=== PATIENT | male | born 1950 | race Caucasian/White ===

== ENCOUNTER 2016-10-11 09:48 | Outpatient (CLI) | payer BC | END 2016-10-11 09:49 | disposition home or self-care (01) | DX: I10 Essential (primary) hypertension (principal); E78.9 Disorder of lipoprotein metabolism, unspecified; R25.2 Cramp and spasm; N28.9 Disorder of kidney and ureter, unspecified ==

== ENCOUNTER 2018-02-07 08:00 | Outpatient (CLI) | payer BC ==
[2018-02-07 19:18] LABS: BASOPHILS % (AUTO) 1.3 %; EOSINOPHILS % (AUTO) 7.7 %; HGB - HEMOGLOBIN 12.9 g/dL (14.0-18.0); LYMPHOCYTES % (AUTO) 34.6 %; MEAN CORPUSCULAR HEMOGLOBIN 31.6 pg (27.0-31.0); MEAN CORPUSCULAR HGB CONC 34.3 g/dL (32.0-36.0); MEAN PLATELET VOLUME 7.4 fL (7.4-11.4); MONOCYTES % (AUTO) 11.9 %; NEUTROPHILS % (AUTO) 44.5 %; PLT - PLATELET COUNT 261 10^3/uL (130-450); RED BLOOD COUNT 4.07 10^6/uL (4.70-6.10); WHITE BLOOD COUNT 3.8 x10^3/uL (4.8-10.8)
[2018-02-07 19:24] LABS: ABNORMAL LYMPHS % (MANUAL) 0 %; BAND NEUTROPHILS % (MANUAL) 0 %
[2018-02-07 19:30] LABS: HB2 TOTAL 13.1 g/dL; HEMOGLOBIN A1C 0.49 g/dL; HEMOGLOBIN A1C % 5.6 % (4.6-6.2)
[2018-02-07 19:46] LABS: BASOPHILS # (MANUAL) 0.1 10^3/uL (0-0.1); BASOPHILS % (MANUAL) 2 %; EOSINOPHILS # (MANUAL) 0.2 10^3/uL (0-0.7); LYMPHOCYTES # (MANUAL) 1.6 10^3/uL (1.5-3.5); LYMPHOCYTES % (MANUAL) 41 %; MONOCYTES # (MANUAL) 0.3 10^3/uL (0.0-1.0); NEUTROPHILS # (MANUAL) 1.7 10^3/uL (1.5-6.6); NEUTROPHILS % (MANUAL) 46 %; RBC MORPHOLOGY (MULTIPLE) NORMAL APPEARANCE (NORMAL)
[2018-02-07 19:47] LABS: DIFFERENTIAL COMMENT MANUAL DIFFERENTIAL; PLATELET ESTIMATE, MANUAL NORMAL (130-450,000) (NORMAL); PLATELET MORPHOLOGY NORMAL APPEARANCE (NORMAL)
[2018-02-07 20:02] LABS: ALBUMIN 3.6 g/dL (3.2-5.5); ALBUMIN/GLOBULIN RATIO 1.1 (1.0-2.2); ALKALINE PHOSPHATASE 70 IU/L (42-121); ALT ALANINE AMINOTRANSFERASE 20 IU/L (10-60); AST ASPARTATE AMINOTRANSFERASE 27 IU/L (10-42); BILIRUBIN,TOTAL 0.8 mg/dL (0.2-1.0); BUN - BLOOD UREA NITROGEN 24 mg/dL (6-20); CALCIUM 9.3 mg/dL (8.5-10.3); CARBON DIOXIDE - CO2 25 mmol/L (21-32); CHLORIDE 107 mmol/L (101-111); CHOL/HDL RATIO 6.9 (<5.0); CHOLESTEROL 302 mg/dL; CREATININE 1.2 mg/dL (0.6-1.2); GFR - MDRD 61 (>89); GLUCOSE 108 mg/dL (70-100); HDL CHOLESTEROL 44 mg/dL; SODIUM 140 mmol/L (135-145)
[2018-02-07 20:23] LABS: LDL CHOLESTEROL,DIRECT 113 mg/dL; LDLD/HDL RATIO 2.6 (<3.6)
== END 2018-02-07 08:01 | disposition home or self-care (01) ==
LOC: LAB.WCP 08:00
PROVIDERS: ATTEND Family Medicine
DX: R70.0 Elevated erythrocyte sedimentation rate (principal); N28.9 Disorder of kidney and ureter, unspecified; R73.9 Hyperglycemia, unspecified; E78.5 Hyperlipidemia, unspecified; I10 Essential (primary) hypertension; Z12.5 Encounter for screening for malignant neoplasm of prostate
CPT/HCPCS: 36415; 80053; 80061; 83036; 83721; 84153; 84443; 85025

== ENCOUNTER 2018-02-15 08:00 | Outpatient (CLI) | payer MEDICARE, BC ==
[2018-02-15 13:22] LABS: FERRITIN 52.1 ng/mL (23.9-336.2)
[2018-02-15 13:29] LABS: % IRON SATURATION 10 % (20-50); IRON 38 ug/dL (45-182); TOTAL IRON BINDING CAPACITY 365 ug/dL (250-450); TRANSFERRIN 261 mg/dL (180-329)
== END 2018-02-15 08:01 | disposition home or self-care (01) ==
LOC: LAB.WCP 08:00
PROVIDERS: ATTEND Family Medicine
DX: D50.9 Iron deficiency anemia, unspecified (principal)
CPT/HCPCS: 36415; 82607; 82728; 82746; 83540; 84466

== ENCOUNTER 2018-07-26 07:44 | Outpatient (CLI) | payer OTHER, MEDICARE, BC ==
--- NOTE | 2018-07-26 16:05 | MRI Report ---
Reason: CONTUSION OF RIGHT SHOULDER,INITIAL ENCOUNTER Procedure Date: 07/26/2018 Accession Number: [id number] / [id number] Procedure: MRI - Shoulder RT W/O CPT Code: FULL RESULT: EXAM: RIGHT SHOULDER MRI WITHOUT CONTRAST EXAM DATE: 07/26/2018 08:00 AM. CLINICAL HISTORY: Right shoulder contusion. Right shoulder pain for several months. Worsened after fall 2 months ago. COMPARISON: 05/14/2018 radiograph. TECHNIQUE: Multiplanar, multisequence T1-weighted and fluid-sensitive sequences of the shoulder without contrast. Other: None. FINDINGS: Acromioclavicular Region: The acromion is type II. Severe acromioclavicular osteoarthropathy is evidenced by bony hypertrophy, capsular calcification, large effusion. Note that the inferior acromioclavicular ligament is discontiguous, allowing fluid from the bursal space to communicate with the joint space. The coracoacromial and coracoclavicular ligaments are intact. A moderate amount of fluid is in the subacromial/subdeltoid bursa. Glenohumeral Region: No subluxation. No effusion or loose bodies. The articular cartilage of the inferior glenohumeral joint is moderately thin. There is mild osteophyte formation. The glenohumeral ligaments and joint capsule are unremarkable. Bone Marrow: No fracture, marrow edema or bone lesions. Labrum: The posterior labrum demonstrates irregularity and some linear increased signal. A tear is not excluded on this non-arthrographic evaluation. The inferior labrum is severely thinned. Musculature/Rotator Cuff: The subscapularis tendon demonstrates mild tendinosis. The supraspinatus tendon has a full-thickness tear of the posterior 90% of the tendon. Retraction is at least 4.2 cm. The infraspinatus tendon is completely torn with retraction of 4.2 cm. The infraspinatus tendon is intact. No muscle edema. Mild supraspinatus and infraspinatus muscle atrophy is seen. Biceps Tendon: The long head of the biceps tendon and biceps prosper are intact. Other: The subcutaneous tissues are unremarkable. IMPRESSION: 1. Severe acromioclavicular osteoarthropathy. 2. Moderate subacromial/subdeltoid bursitis. 3. Mild glenohumeral osteoarthritis. 4. Degeneration of the labrum. 5. Mild subscapularis tendinosis. 6. Full-thickness tear of the posterior 90% of the supraspinatus tendon. 7. Complete tear of the infraspinatus tendon. [facility] MUSCULOSKELETAL RADIOLOGY SECTION
== END 2018-07-26 07:45 | disposition home or self-care (01) ==
LOC: DI 07:44
PROVIDERS: ATTEND Orthopaedic Surgery Sports Medicine
DX: M19.011 Primary osteoarthritis, right shoulder (principal); M75.51 Bursitis of right shoulder; M24.111 Other articular cartilage disorders, right shoulder; M75.91 Shoulder lesion, unspecified, right shoulder; M75.101 Unspecified rotator cuff tear or rupture of right shoulder, not specified as traumatic; S40.011A Contusion of right shoulder, initial encounter

== ENCOUNTER 2018-09-24 10:22 | Outpatient (CLI) | payer MEDICARE, BC ==
[2018-09-24 10:47] LABS: BASOPHILS # (AUTO) 0.1 10^3/uL (0.0-0.1); BASOPHILS % (AUTO) 2.3 %; EOSINOPHILS # (AUTO) 0.4 10^3/uL (0.0-0.7); EOSINOPHILS % (AUTO) 9.4 %; HGB - HEMOGLOBIN 12.3 g/dL (14.0-18.0); LYMPHOCYTES # (AUTO) 1.4 10^3/uL (1.5-3.5); LYMPHOCYTES % (AUTO) 30.9 %; MEAN CORPUSCULAR HEMOGLOBIN 31.1 pg (27.0-31.0); MEAN CORPUSCULAR HGB CONC 34.1 g/dL (32.0-36.0); MEAN CORPUSCULAR VOLUME 91.2 fL (80.0-94.0); MEAN PLATELET VOLUME 6.9 fL (7.4-11.4); MONOCYTES # (AUTO) 0.6 10^3/uL (0.0-1.0); MONOCYTES % (AUTO) 12.8 %; NEUTROPHILS % (AUTO) 44.6 %; PLT - PLATELET COUNT 251 10^3/uL (130-450); RED BLOOD COUNT 3.97 10^6/uL (4.70-6.10); RED CELL DISTRIBUTION WIDTH 13.4 % (12.0-15.0); WHITE BLOOD COUNT 4.4 x10^3/uL (4.8-10.8)
[2018-09-24 12:36] LABS: CALCIUM 9.3 mg/dL (8.5-10.3)
[2018-09-24 15:59] LABS: CREATININE 1.1 mg/dL (0.6-1.2)
== END 2018-09-24 10:23 | disposition home or self-care (01) ==
LOC: LAB 10:22
PROVIDERS: ATTEND Orthopaedic Surgery Sports Medicine
DX: Z01.812 Encounter for preprocedural laboratory examination (principal); M75.101 Unspecified rotator cuff tear or rupture of right shoulder, not specified as traumatic; M75.51 Bursitis of right shoulder; M19.011 Primary osteoarthritis, right shoulder; M75.41 Impingement syndrome of right shoulder; S46.011D Strain of muscle(s) and tendon(s) of the rotator cuff of right shoulder, subsequent encounter
CPT/HCPCS: 36415; 80048; 85025

== ENCOUNTER 2018-09-25 05:52 | Day surgery (SDC) | payer OTHER, MEDICARE, BC ==
[2018-09-25] MEDS ORDERED: ceFAZolin 2 GM/50 ML 2 GM/50 ML BAG IV ONE (06:22)
[2018-09-25] MEDS ORDERED: LACTATED RINGERS 1,000 ML IV ONE ×2 (06:48→10:30)
--- NOTE | 2018-09-25 06:57 | ANESTHESIA ---
Pre-Anesthesia VS, & Labs - Diagnosis R shoulder RC tear, subacromial bursitis, R AC osteoarthropathy. - Procedure R decompression, DCE, possible open RCR Vital Signs: Temp Pulse Resp BP Pulse Ox 36.6 C 66 18 141/85 H 95 09/25/18 06:30 09/25/18 06:30 09/25/18 06:30 09/25/18 06:30 09/25/18 06:30 Height 6 ft 1 in Weight (kg) 114.9 kg - NPO >8 hours - Lab Results Lab results reviewed: Yes Home Medications and Allergies Home Medications: Ambulatory Orders Allopurinol 100 mg PO BID 09/24/18 Aspirin 325 mg PO DAILY 09/24/18 Cholecalciferol (Vitamin D3) [Vitamin D] 2,000 unit PO BID 09/24/18 Colchicine [Colcrys] 0.6 mg PO BID PRN 09/24/18 Doxazosin [Cardura] 4 mg PO QPM 09/24/18 Esomeprazole Magnesium [Nexium] 20 mg PO BID 09/24/18 Shabana-C 1 tab PO DAILY 09/24/18 Glucosamine/D3/Boswellia Mayra [Osteo Bi-Flex Tablet] 1 each PO DAILY 09/24/18 Lisinopril 20 mg PO DAILY 09/24/18 Metoprolol Tartrate 25 mg PO BID 09/24/18 Multivitamin [Multivitamins] 1 each PO DAILY 09/24/18 [place]-3/Dha/Epa/Fish Oil [Fish Oil 1,000 mg Softgel] 1 each PO DAILY 09/24/18 PARoxetine [Paxil] 10 mg PO DAILY 09/24/18 Vitamin B Complex 1 each PO DAILY 09/24/18 amLODIPine [Norvasc] 5 mg PO DAILY 09/24/18 Allopurinol 100 mg PO BID 09/24/18 Aspirin 325 mg PO DAILY 09/24/18 Cholecalciferol (Vitamin D3) [Vitamin D] 2,000 unit PO BID 09/24/18 Colchicine [Colcrys] 0.6 mg PO BID PRN 09/24/18 Doxazosin [Cardura] 4 mg PO QPM 09/24/18 Esomeprazole Magnesium [Nexium] 20 mg PO BID 09/24/18 Shabana-C 1 tab PO DAILY 09/24/18 Glucosamine/D3/Boswellia Mayra [Osteo Bi-Flex Tablet] 1 each PO DAILY 09/24/18 Lisinopril 20 mg PO DAILY 09/24/18 Metoprolol Tartrate 25 mg PO BID 09/24/18 Multivitamin [Multivitamins] 1 each PO DAILY 09/24/18 [place]-3/Dha/Epa/Fish Oil [Fish Oil 1,000 mg Softgel] 1 each PO DAILY 09/24/18 PARoxetine [Paxil] 10 mg PO DAILY 09/24/18 Vitamin B Complex 1 each PO DAILY 09/24/18 amLODIPine [Norvasc] 5 mg PO DAILY 09/24/18 Allergies/Adverse Reactions: Allergies Allergy/AdvReac Type Severity Reaction Status Date / Time No Known Drug Allergies Allergy Verified 09/24/18 10:16 Anes History & Medical History - Medical History Cardiovascular: reports: Hypertension Pulmonary: reports: None Gastrointestinal: reports: GERD Urinary: reports: None Musculoskeletal: reports: Osteoarthritis Endocrine/Autoimmune: reports: None Skin: reports: None - Surgical History Orthopedic: Knee replacement, Other Exam General: Alert, Oriented x3, Cooperative Dental: WNL Mouth Openin Fingerbreadth Neck Mobility: Normal Mallampati classification: I Respiratory: Lungs clear, Normal breath sounds Cardiovascular: Regular rate Neurological: Normal speech Mental/Cognitive Status: Alert/Oriented X3, Normal for patient Cognitive Status: Within normal limits Plan Anesthesia Type: General, Supraclavicular Block Regional Block: Per Surgeon's request for Post Op pain control Consent for Procedure(s) Verified and Reviewed: Yes Code Status: Attempt Resuscitation ASA classification: 2-Mild systemic disease Is this case an emergency?: No
[2018-09-25] MEDS ORDERED: EPINEPHrine 1 MG/ML AMP ONE (07:08)
[2018-09-25] MEDS ORDERED: BUPIVACAINE 0.25%-EPI 1:200000 PF 30 ML VIAL ONE (07:27)
[2018-09-25] MEDS ORDERED: BUPIVACAINE 0.25%-EPI 1:200000 PF 10 ML VIAL SUBQ ONE (08:28)
--- NOTE | 2018-09-25 08:48 | ANESTHESIA PROCEDURE NOTE ---
Diagnosis: rotator cuff tear for arthroscopic repair Procedure: supraclavicular block Consent for Procedure(s) Verified and Reviewed: Yes Height and Weight: Height 6 ft 1 in Weight (kg) 114.9 kg Vital Signs: Temp Pulse Resp BP Pulse Ox 36.6 C 66 18 141/85 H 95 09/25/18 06:30 09/25/18 06:30 09/25/18 06:30 09/25/18 06:30 09/25/18 06:30 Allergies No Known Drug Allergies Allergy (Verified 09/24/18 10:16) ASA classification: 2-Mild systemic disease Is this case an emergency?: No Anes. Monitoring and Equipment: Non-invasive BP, Pulse oximetery Anes. Procedure Start Time: 07:22 Anes. Procedure Stop Time: 07:39 Procedure Notes: Ultrasound view difficult anatomy secondary to neck size, probe reposition and setting adjustments somewhat improved view, needle under guidance. Local in 5cc increments 0.5 Ropivicaine with decadron 4mg to total 30cc. No motor or sensory change, at slight different injection site with improved view of plexus an additional 20cc 0.5% Ropivicaine added in 5cc increments, patient awake and tolerated procedure well, vss. 2mg versed was given prior at 720.
[2018-09-25] MEDS ORDERED: ONDANSETRON 4 MG/2 ML VIAL IVP PRN (10:52)
[2018-09-25] MEDS ORDERED: oxyCODONE 5 MG TABLET PO PRN (10:52)
--- NOTE | 2018-09-25 10:56 | IMMEDIATE POSTOPERATIVE NOTE ---
Immediate Postoperative Note - Procedure Note Procedure Date: 09/25/18 Pre-Op Diagnosis: RIGHT SHOULDER RCR, KRISTIE, AC JOINT DJD Procedure: RIGHT SHOULDER SCOPE RCR, SAD, DCE Post-Op Diagnosis: SAME Primary Surgeon: ROBI [employer] Specialist: SPARKLE Anesthesia Type: General ET tube, Local, Regional block Complications: No complications Estimated Blood Loss (in cc): 50 Plan of Care: PT JOAO PROCEDURE WELL. INST SPONGE COUNTS CORRECT. XFER TO RR IN STABLE CONDITION. STD RCR PROTOCOL
[2018-09-25] MEDS ORDERED: oxyCODONE 5 MG TABLET ONE (11:27)
[2018-09-25 12:11] VITALS: BP 122/78
--- NOTE | 2018-09-26 10:05 | OPERATIVE REPORT ---
DATE OF SERVICE: 09/25/2018 Physician: Desmond Sanchez MD SURGEON: Desmond Sanchez MD. DATABASE PROGRAMMER: None. ANESTHESIA PROVIDER: Chani Barkley CRNA. ANESTHESIA TYPE: General anesthesia as well as interscalene ultrasound-guided right upper extremity nerve block, as well as local anesthesia, 30 mL of 0.25% Marcaine with epinephrine. ESTIMATED BLOOD LOSS: 50 mL. FLUIDS: 800 mL lactated Ringer's. PREOPERATIVE ANTIBIOTICS: Weight-based IV Ancef. COMPRESSION DEVICE: Bilateral calf SCD boots. ORTHOPEDIC IMPLANTS 1. Arthrex Zipzoom 3 x 5.5 BioComposite triple-loaded anchors. 2. ArthSpectafy 2 x #2 FiberWire. PREOPERATIVE DIAGNOSES 1. Right shoulder rotator cuff tear. 2. Right shoulder subacromial impingement. 3. Right shoulder acromioclavicular joint degenerative disease and pain. POSTOPERATIVE DIAGNOSES 1. Right shoulder rotator cuff tear. 2. Right shoulder subacromial impingement. 3. Right shoulder acromioclavicular joint degenerative disease and pain. PROCEDURES 1. Right shoulder arthroscopic rotator cuff repair. 2. Right shoulder arthroscopic subacromial decompression and conversion to type 1 acromion. 3. Right shoulder arthroscopic distal clavicle excision. INTRAOPERATIVE COMPLICATIONS: None noted. INTRAOPERATIVE FINDINGS: Patient has passive essentially full forward flexion, abduction, internal a nd external rotation of shoulder. Intraarticularly shows chondromalacia grade 1-2 glenohumeral joint , minimal labral fraying, biceps okay, subscapularis okay. There is a significant supraspinatus tear throughout its entire length essentially, anterior to posterior, with a very deep crescent-shaped te ar, which was retracted about to the level of the glenoid postreduction and fixation as to a near de tomic footprint with good integrity of the repair. Subacromial space shows bursitis and fibrous tiss ue, ultimately cleared and converted to a type 1 acromion. HISTORY OF PRESENT ILLNESS/INDICATIONS: Patient is a 68-year-old gentleman with longstanding right s houlder rotator cuff injury. He ultimately had appropriate medical and cardiology risk stratificatio n and optimization and was indicated for operative treatment. We previously reviewed risks, benefits , alternatives in the clinic visit on multiple occasions. These were again highlighted in the preope rative care unit. Patient's questions were answered. He verbalized wished to proceed with operative treatment. Informed consent was given. PROCEDURE: On 09/25/2018, patient identified his right shoulder as the operative site in the preoper ative care unit. He is given preoperative weight-based IV antibiotics. His right shoulder is signed . Patient is brought to the operating room, initially placed supine on the operating table. It shou ld be noted that ultrasound-guided right side interscalene block was given by anesthesia team prior t o bringing to the OR. After general anesthesia was administered, patient was placed in left side down lateral decubitus pos ition with an appropriately placed chest roll to avoid encumbrance of the axilla. His down leg is ge l padded, his SCD boots in place, his pillow between his legs, and a beanbag positioner is used. Hea d, neck and extremities placed in anatomically comfortable positions to avoid peripheral nerve stretc h and compression. At this point, patient's right upper extremity and shoulder was prepared and drap ed out using U drape and prescrubbed, and then prepped and draped in the usual sterile fashion. 15 p ounds of traction are used. At this time, surgical positively identifies right shoulder. Local anesthetic is infused posteriorly , anteriorly and laterally. A small incision is made posteriorly. Scope is introduced into the coco ohumeral joint. Diagnostic arthroscopy is carried out. Outside-in technique is used to place the an terior portal, which is placed, and then some minimal debridement of the rotator cuff from the unders urface is performed. At this point, attention is directed to the subacromial space, where the scope is redirected to the subacromial space. A lateral incision is made to level with the posterior aspec t of the clavicle, about 3 fingerbreadths off of the acromion, and shaver is brought into the subacro mial space, at which point subacromial decompression, first of soft tissue then ultimately of bone us ing a bur, is performed to convert to a type 1 acromion. The rotator cuff edge is debrided sharply u sing a meniscal basket. The rotator cuff footprint is debrided using a shaver and a bur to freshly b leeding bone, but leaving good integrity of the bone. Arthroscopic chisel is used above and below th e rotator cuff to help mobilize this, and then it is pulled using a kingfisher grasper to confirm marcela t it can be reduced nicely. At this point, given the shape of the rotator cuff tear, two [id number] sutures are placed towards the "apex" of the deep crescentic tear. This closes down the space and brings the po sterior aspect a bit more anterior; though there is still a small rent posteriorly adjacent to the in fraspinatus. At this point, sequential anterior to posterior anchors are placed, three in number. T he anterior anchor sutures are placed with simple sutures using a Scorpion device through the lateral aspect of the rotator cuff tendon and reduces the anterior aspect nicely. Then, the two subsequent middle and posterior anchors are placed, of which the most posterior sutures of horizontal mattress c rossing the small rent that remained, thereby reducing the entire rotator cuff and fixing it well to the rotator cuff footprint. Sutures are all tied, appropriate suture limbs are then cut, and the rep air is probed and noted to be stable. At this time, the distal clavicle excision is performed using a combination of shaver, arthroscopic h eating device with appropriate flow to avoid thermal injury, and a bur to ensure that the distal clav icle is resected to the 8-10 mm level, and then scope is changed portals to confirm and have appropri ate view of the entire AC joint to confirm that there are no residual bony bridges. At this point, the subacromial space is copiously irrigated. Hemostasis achieved. Local anesthetic is infused in the periarticular region and in the incision sites, and then incisions are closed using interrupted nylon suture. Skin is washed, dried. Xeroform dressing applied., dry sterile dressings applied 4 x 4, and the MicroPort tape is applied. Abduction pillow is applied. Patient tolerated procedure well. Instrument and sponge counts correct. Patient is transferred to r ecovery room in stable condition. Patient will follow standard postoperative rotator cuff repair protocol. He will avoid active should er range of motion, avoid weightbearing resistance of right upper extremity. He will be in a sling, but gently exercise elbow, wrist and hand as necessary. He will come out of the sling only for showe ring after the 3-day sena, when he would place waterproof Band-Aids on his wounds and let his arm wooten g down, but do no active shoulder motion there. He will not soak. FOLLOWUP: Patient will follow up in 10-14 days or sooner on an as-needed basis. Postoperative instructions previously reviewed. He denies any contraindication to medications planamada d and will use the directed. He will notify us prior to followup with if any problems or questions a rise. TD: 09/26/2018 08:12
== END 2018-09-25 05:53 | disposition home or self-care (01) ==
LOC: SDS 05:52
PROVIDERS: ATTEND Orthopaedic Surgery Sports Medicine
PROC: 0RNJ4ZZ Release Right Shoulder Joint, Percutaneous Endoscopic Approach (ICD-10-PCS; 2018-09-25)
PROC: 0PB94ZZ Excision of Right Clavicle, Percutaneous Endoscopic Approach (ICD-10-PCS; 2018-09-25)
PROC: 0LQ14ZZ Repair Right Shoulder Tendon, Percutaneous Endoscopic Approach (ICD-10-PCS; principal; 2018-09-25 07:30)
PROC: 0RHJ44Z Insertion of Internal Fixation Device into Right Shoulder Joint, Percutaneous Endoscopic Approach (ICD-10-PCS; 2018-09-25 07:30)
DX: S46.011A Strain of muscle(s) and tendon(s) of the rotator cuff of right shoulder, initial encounter (principal); M19.011 Primary osteoarthritis, right shoulder; M75.51 Bursitis of right shoulder; M75.41 Impingement syndrome of right shoulder; I10 Essential (primary) hypertension; N17.9 Acute kidney failure, unspecified; N28.9 Disorder of kidney and ureter, unspecified; D50.9 Iron deficiency anemia, unspecified; R73.9 Hyperglycemia, unspecified; Z87.891 Personal history of nicotine dependence
CPT/HCPCS: 29824; 29826; 29827; A9270; J0690; J7120

== ENCOUNTER 2019-07-29 10:13 | Outpatient (CLI) | payer MEDICARE, BC ==
[2019-07-29 18:56] LABS: BASOPHILS % (AUTO) 0.9 %; EOSINOPHILS # (AUTO) 0.2 10^3/uL (0.0-0.7); EOSINOPHILS % (AUTO) 4.1 %; HGB - HEMOGLOBIN 12.1 g/dL (14.0-18.0); LYMPHOCYTES # (AUTO) 1.2 10^3/uL (1.5-3.5); LYMPHOCYTES % (AUTO) 25.1 %; MEAN CORPUSCULAR HEMOGLOBIN 31.6 pg (27.0-31.0); MEAN CORPUSCULAR HGB CONC 32.3 g/dL (32.0-36.0); MEAN CORPUSCULAR VOLUME 97.9 fL (80.0-94.0); MEAN PLATELET VOLUME 9.7 fL (7.4-11.4); MONOCYTES # (AUTO) 0.6 10^3/uL (0.0-1.0); MONOCYTES % (AUTO) 11.8 %; NEUTROPHILS # (AUTO) 2.7 10^3/uL (1.5-6.6); NEUTROPHILS % (AUTO) 57.9 %; PLT - PLATELET COUNT 259 10^3/uL (130-450); RED BLOOD COUNT 3.83 10^6/uL (4.70-6.10); RED CELL DISTRIBUTION WIDTH 13.2 % (12.0-15.0); WHITE BLOOD COUNT 4.7 x10^3/uL (4.8-10.8)
[2019-07-29 19:14] LABS: ALBUMIN 3.7 g/dL (3.2-5.5); ALBUMIN/GLOBULIN RATIO 1.2 (1.0-2.2); ALKALINE PHOSPHATASE 61 IU/L (42-121); ALT ALANINE AMINOTRANSFERASE 21 IU/L (10-60); AST ASPARTATE AMINOTRANSFERASE 27 IU/L (10-42); BILIRUBIN,TOTAL 0.7 mg/dL (0.2-1.0); BUN - BLOOD UREA NITROGEN 22 mg/dL (6-20); CALCIUM 9.2 mg/dL (8.5-10.3); CARBON DIOXIDE - CO2 24 mmol/L (21-32); CHLORIDE 107 mmol/L (101-111); CHOL/HDL RATIO 5.1 (<5.0); CHOLESTEROL 240 mg/dL; CREATININE 1.6 mg/dL (0.6-1.2); GFR - MDRD 43 (>89); GLUCOSE 100 mg/dL (70-100); HDL CHOLESTEROL 47 mg/dL; LDL CHOLESTEROL,CALCULATED 150 mg/dL; LDL/HDL RATIO 3.2 (<3.6); SODIUM 138 mmol/L (135-145); TOTAL PROTEIN 6.9 g/dL (6.7-8.2); URIC ACID 5.8 mg/dL (2.6-7.2); VLDL CHOLESTEROL 43 mg/dL
== END 2019-07-29 23:59 | disposition home or self-care (01) ==
LOC: LAB.WCP 10:13
PROVIDERS: ATTEND Family Medicine
DX: I10 Essential (primary) hypertension (principal); R73.9 Hyperglycemia, unspecified; E78.9 Disorder of lipoprotein metabolism, unspecified; Z12.5 Encounter for screening for malignant neoplasm of prostate; M10.00 Idiopathic gout, unspecified site
CPT/HCPCS: 36415; 80053; 80061; 84443; 84550; 85025; G0103; 83721; 84153

== ENCOUNTER 2021-02-16 08:00 | Outpatient (CLI) | payer MEDICARE, BC ==
[2021-02-16 17:49] LABS: BASOPHILS % (AUTO) 0.5 %; EOSINOPHILS # (AUTO) 0.3 10^3/uL (0.0-0.7); EOSINOPHILS % (AUTO) 5.9 %; HCT - HEMATOCRIT 39.6 % (42.0-52.0); HGB - HEMOGLOBIN 12.7 g/dL (14.0-18.0); LYMPHOCYTES # (AUTO) 1.2 10^3/uL (1.5-3.5); LYMPHOCYTES % (AUTO) 21.8 %; MEAN CORPUSCULAR HEMOGLOBIN 31.6 pg (27.0-31.0); MEAN CORPUSCULAR HGB CONC 32.1 g/dL (32.0-36.0); MEAN CORPUSCULAR VOLUME 98.5 fL (80.0-94.0); MEAN PLATELET VOLUME 9.7 fL (7.4-11.4); MONOCYTES # (AUTO) 0.6 10^3/uL (0.0-1.0); MONOCYTES % (AUTO) 10.7 %; NEUTROPHILS # (AUTO) 3.4 10^3/uL (1.5-6.6); NEUTROPHILS % (AUTO) 60.9 %; PLT - PLATELET COUNT 248 10^3/uL (130-450); RED BLOOD COUNT 4.02 10^6/uL (4.70-6.10); RED CELL DISTRIBUTION WIDTH 13.2 % (12.0-15.0); WHITE BLOOD COUNT 5.6 x10^3/uL (4.8-10.8)
[2021-02-16 18:19] LABS: THYROID STIMULATING HORMONE 1.43 uIU/mL (0.34-5.60)
[2021-02-16 18:26] LABS: ALBUMIN 3.8 g/dL (3.2-5.5); ALBUMIN/GLOBULIN RATIO 1.2 (1.0-2.2); ALKALINE PHOSPHATASE 66 IU/L (42-121); ALT ALANINE AMINOTRANSFERASE 24 IU/L (10-60); AST ASPARTATE AMINOTRANSFERASE 27 IU/L (10-42); BILIRUBIN,TOTAL 0.7 mg/dL (0.2-1.0); BUN - BLOOD UREA NITROGEN 39 mg/dL (6-20); CHOL/HDL RATIO 5.9 (<5.0); CHOLESTEROL 260 mg/dL; CREATININE 1.9 mg/dL (0.6-1.2); GFR - MDRD 35 (>89); HDL CHOLESTEROL 44 mg/dL; LDL CHOLESTEROL,CALCULATED 173 mg/dL; LDL/HDL RATIO 3.9 (<3.6); TOTAL PROTEIN 7.1 g/dL (6.7-8.2); TRIGLYCERIDES 215 mg/dL; VLDL CHOLESTEROL 43 mg/dL
[2021-02-16 18:38] LABS: CALCIUM 9.2 mg/dL (8.5-10.3); CARBON DIOXIDE - CO2 24 mmol/L (21-32); CHLORIDE 107 mmol/L (101-111); GLUCOSE 99 mg/dL (70-100); POTASSIUM 4.5 mmol/L (3.5-5.0); SODIUM 141 mmol/L (135-145)
== END 2021-02-16 23:59 | disposition home or self-care (01) ==
LOC: LAB.WCP 08:00
PROVIDERS: ATTEND Internal Medicine
DX: I10 Essential (primary) hypertension (principal); E78.5 Hyperlipidemia, unspecified; Z12.5 Encounter for screening for malignant neoplasm of prostate
CPT/HCPCS: 36415; 80053; 80061; 84443; 85025; G0103; 83721; 84153

== ENCOUNTER 2021-05-19 11:28 | Outpatient (CLI) | payer MEDICARE, BC ==
[2021-05-19 18:37] LABS: CALCIUM 9.3 mg/dL (8.5-10.3); CREATININE 1.4 mg/dL (0.6-1.2); POTASSIUM 4.1 mmol/L (3.5-5.0); URIC ACID 5.4 mg/dL (2.6-7.2)
[2021-05-19 18:52] LABS: BASOPHILS # (AUTO) 0.1 10^3/uL (0.0-0.1); BASOPHILS % (AUTO) 1.1 %; EOSINOPHILS # (AUTO) 0.3 10^3/uL (0.0-0.7); EOSINOPHILS % (AUTO) 6.4 %; HCT - HEMATOCRIT 40.3 % (42.0-52.0); HGB - HEMOGLOBIN 12.7 g/dL (14.0-18.0); LYMPHOCYTES # (AUTO) 1.2 10^3/uL (1.5-3.5); LYMPHOCYTES % (AUTO) 27.3 %; MEAN CORPUSCULAR HEMOGLOBIN 31.6 pg (27.0-31.0); MEAN CORPUSCULAR HGB CONC 31.5 g/dL (32.0-36.0); MEAN CORPUSCULAR VOLUME 100.2 fL (80.0-94.0); MEAN PLATELET VOLUME 9.8 fL (7.4-11.4); MONOCYTES # (AUTO) 0.7 10^3/uL (0.0-1.0); MONOCYTES % (AUTO) 14.5 %; NEUTROPHILS # (AUTO) 2.3 10^3/uL (1.5-6.6); NEUTROPHILS % (AUTO) 50.5 %; PLT - PLATELET COUNT 237 10^3/uL (130-450); RED BLOOD COUNT 4.02 10^6/uL (4.70-6.10); RED CELL DISTRIBUTION WIDTH 13.1 % (12.0-15.0); WHITE BLOOD COUNT 4.5 x10^3/uL (4.8-10.8)
[2021-05-19 19:38] LABS: BILIRUBIN,URINE NEGATIVE (NEGATIVE); GLUCOSE, URINE (UA) NEGATIVE (NEGATIVE); KETONES,URINE (UA) NEGATIVE (NEGATIVE); LEUKOCYTE ESTERASE, URINE NEGATIVE (NEGATIVE); NITRITE,URINE NEGATIVE (NEGATIVE); OCCULT BLOOD,URINE SMALL (NEGATIVE); PROTEIN,URINE NEGATIVE (NEGATIVE); UROBILINOGEN,URINE 0.2 (NORMAL) E.U./dL (NORMAL)
[2021-05-19 19:40] LABS: CLARITY,URINE CLEAR (CLEAR)
[2021-05-19 19:49] LABS: CREATININE,URINE 212.9 mg/dL; MICROALBUM/CREATININE RATIO,UR 33.3 ug/mg (<30.0); MICROALBUMIN,URINE 7.1 mg/dL (0-300.0); PROTEIN/CREATININE RATIO,URINE 0.1 (<=0.2)
[2021-05-19 20:18] LABS: BACTERIA,URINE Few /HPF (None Seen); RBC,URINE 0-5 /HPF (0-5); SQUAMOUS EPITHELIAL CELL,UR NONE SEEN (<= Few); WBC,URINE 0-3 /HPF (0-3)
[2021-05-19 20:19] LABS: CASTS, URINE 0-2 Hyaline Casts /LPF
== END 2021-05-19 23:59 | disposition home or self-care (01) ==
LOC: LAB.WCP 11:28
PROVIDERS: ATTEND Internal Medicine
DX: N18.32 Chronic kidney disease, stage 3b (principal)
CPT/HCPCS: 36415; 80048; 81001; 81599; 82043; 82570; 84156; 84550; 85025; 86334; 87086

== ENCOUNTER 2021-12-12 10:28 | Outpatient (CLI) | payer MEDICARE, BC ==
[2021-12-12 17:41] LABS: BASOPHILS % (AUTO) 0.9 %; EOSINOPHILS # (AUTO) 0.3 10^3/uL (0.0-0.7); EOSINOPHILS % (AUTO) 7.8 %; HCT - HEMATOCRIT 40.2 % (42.0-52.0); HGB - HEMOGLOBIN 13.3 g/dL (14.0-18.0); LYMPHOCYTES # (AUTO) 1.2 10^3/uL (1.5-3.5); MEAN CORPUSCULAR HEMOGLOBIN 31.4 pg (27.0-31.0); MEAN CORPUSCULAR HGB CONC 33.1 g/dL (32.0-36.0); MEAN PLATELET VOLUME 10.1 fL (7.4-11.4); MONOCYTES # (AUTO) 0.6 10^3/uL (0.0-1.0); MONOCYTES % (AUTO) 13.1 %; NEUTROPHILS # (AUTO) 2.2 10^3/uL (1.5-6.6); PLT - PLATELET COUNT 247 10^3/uL (130-450); RED BLOOD COUNT 4.23 10^6/uL (4.70-6.10); RED CELL DISTRIBUTION WIDTH 12.6 % (12.0-15.0); WHITE BLOOD COUNT 4.4 x10^3/uL (4.8-10.8)
[2021-12-12 18:02] LABS: ALBUMIN 3.7 g/dL (3.2-5.5); ALKALINE PHOSPHATASE 76 IU/L (42-121); ALT ALANINE AMINOTRANSFERASE 23 IU/L (10-60); AST ASPARTATE AMINOTRANSFERASE 23 IU/L (10-42); BILIRUBIN,TOTAL 0.5 mg/dL (0.2-1.0); BUN - BLOOD UREA NITROGEN 31 mg/dL (6-20); CALCIUM 9.8 mg/dL (8.5-10.3); CARBON DIOXIDE - CO2 26 mmol/L (21-32); CHLORIDE 107 mmol/L (101-111); CHOL/HDL RATIO 5.1 (<5.0); CHOLESTEROL 242 mg/dL; CREATININE 1.7 mg/dL (0.6-1.2); GFR - MDRD 40 (>89); GLUCOSE 110 mg/dL (70-100); HDL CHOLESTEROL 47 mg/dL; LDL CHOLESTEROL,CALCULATED 143 mg/dL; POTASSIUM 4.3 mmol/L (3.5-5.0); SODIUM 141 mmol/L (135-145); TOTAL PROTEIN 7.3 g/dL (6.7-8.2); TRIGLYCERIDES 259 mg/dL; VLDL CHOLESTEROL 52 mg/dL
[2021-12-12 18:08] LABS: CREATININE,URINE 276.5 mg/dL; MICROALBUM/CREATININE RATIO,UR 11.9 ug/mg (<30.0); MICROALBUMIN,URINE 3.3 mg/dL (0-300.0); THYROID STIMULATING HORMONE 1.65 uIU/mL (0.34-5.60)
[2021-12-12 22:48] LABS: ESTIMATED AVERAGE GLUCOSE 117 mg/dL (70-100); HEMOGLOBIN A1c% 5.7 % (4.27-6.07)
== END 2021-12-12 10:29 | disposition home or self-care (01) ==
LOC: LAB.N 10:28
PROVIDERS: ATTEND Internal Medicine
DX: E78.5 Hyperlipidemia, unspecified (principal); R73.01 Impaired fasting glucose; N40.1 Benign prostatic hyperplasia with lower urinary tract symptoms; M10.00 Idiopathic gout, unspecified site; I10 Essential (primary) hypertension
CPT/HCPCS: 36415; 80053; 80061; 82043; 82570; 83036; 83721; 84153; 84443; 84550; 85025

== ENCOUNTER 2022-06-20 09:36 | Outpatient (CLI) | payer MEDICARE, BC ==
[2022-06-20 12:20] LABS: CALCIUM 9.5 mg/dL (8.5-10.3); CREATININE 1.7 mg/dL (0.6-1.2); POTASSIUM 3.8 mmol/L (3.5-5.0); URIC ACID 5.2 mg/dL (2.6-7.2)
[2022-06-20 12:38] LABS: ESTIMATED AVERAGE GLUCOSE 114 mg/dL (70-100); HEMOGLOBIN A1c% 5.6 % (4.27-6.07)
== END 2022-06-20 09:37 | disposition home or self-care (01) ==
LOC: LAB.N 09:36
PROVIDERS: ATTEND Internal Medicine
DX: M10.9 Gout, unspecified (principal); R73.01 Impaired fasting glucose
CPT/HCPCS: 36415; 80048; 83036; 84550

== ENCOUNTER 2022-12-14 11:12 | Outpatient (CLI) | payer MEDICARE, BC ==
[2022-12-14 18:06] LABS: BASOPHILS # (AUTO) 0.1 10^3/uL (0.0-0.1); BASOPHILS % (AUTO) 0.9 %; EOSINOPHILS # (AUTO) 0.4 10^3/uL (0.0-0.7); EOSINOPHILS % (AUTO) 7.2 %; HCT - HEMATOCRIT 40.6 % (42.0-52.0); HGB - HEMOGLOBIN 13.2 g/dL (14.0-18.0); LYMPHOCYTES # (AUTO) 1.6 10^3/uL (1.5-3.5); LYMPHOCYTES % (AUTO) 29.4 %; MEAN CORPUSCULAR HEMOGLOBIN 31.1 pg (27.0-31.0); MEAN CORPUSCULAR HGB CONC 32.5 g/dL (32.0-36.0); MEAN CORPUSCULAR VOLUME 95.8 fL (80.0-94.0); MEAN PLATELET VOLUME 9.6 fL (7.4-11.4); MONOCYTES # (AUTO) 0.7 10^3/uL (0.0-1.0); NEUTROPHILS # (AUTO) 2.8 10^3/uL (1.5-6.6); NEUTROPHILS % (AUTO) 50.3 %; PLT - PLATELET COUNT 281 10^3/uL (130-450); RED BLOOD COUNT 4.24 10^6/uL (4.70-6.10); RED CELL DISTRIBUTION WIDTH 12.9 % (12.0-15.0); WHITE BLOOD COUNT 5.6 x10^3/uL (4.8-10.8)
[2022-12-14 18:19] LABS: ALBUMIN 3.8 g/dL (3.2-5.5); ALKALINE PHOSPHATASE 81 IU/L (42-121); ALT ALANINE AMINOTRANSFERASE 23 IU/L (10-60); AST ASPARTATE AMINOTRANSFERASE 26 IU/L (10-42); BILIRUBIN,TOTAL 0.6 mg/dL (0.2-1.0); BUN - BLOOD UREA NITROGEN 35 mg/dL (6-20); CALCIUM 9.7 mg/dL (8.5-10.3); CARBON DIOXIDE - CO2 23 mmol/L (21-32); CHLORIDE 108 mmol/L (101-111); CHOLESTEROL 233 mg/dL; CREATININE 2.1 mg/dL (0.6-1.2); GFR - MDRD 31 (>89); GLUCOSE 100 mg/dL (70-100); HDL CHOLESTEROL 39 mg/dL; LDL CHOLESTEROL,CALCULATED 117 mg/dL; POTASSIUM 4.4 mmol/L (3.5-5.0); SODIUM 141 mmol/L (135-145); TOTAL PROTEIN 7.7 g/dL (6.7-8.2); TRIGLYCERIDES 386 mg/dL; URIC ACID 6.4 mg/dL (2.6-7.2); VLDL CHOLESTEROL 77 mg/dL
[2022-12-14 18:22] LABS: CREATININE,URINE 313.6 mg/dL; MICROALBUM/CREATININE RATIO,UR 13.4 ug/mg (<30.0); MICROALBUMIN,URINE 4.2 mg/dL (0-300.0)
[2022-12-14 20:25] LABS: ESTIMATED AVERAGE GLUCOSE 117 mg/dL (70-100); HEMOGLOBIN A1c% 5.7 % (4.27-6.07)
== END 2022-12-14 11:13 | disposition home or self-care (01) ==
LOC: LAB.N 11:12
PROVIDERS: ATTEND Internal Medicine
DX: E78.5 Hyperlipidemia, unspecified (principal); R73.01 Impaired fasting glucose; N40.1 Benign prostatic hyperplasia with lower urinary tract symptoms; E79.0 Hyperuricemia without signs of inflammatory arthritis and tophaceous disease; I12.9 Hypertensive chronic kidney disease with stage 1 through stage 4 chronic kidney disease, or unspecified chronic kidney disease
CPT/HCPCS: 36415; 80053; 80061; 82043; 82570; 83036; 83721; 84153; 84550; 85025

== ENCOUNTER 2023-05-09 09:46 | Outpatient (CLI) | payer MEDICARE, BC ==
[2023-05-09 12:34] LABS: CALCIUM 9.3 mg/dL (8.5-10.3); CREATININE 1.7 mg/dL (0.6-1.3); URIC ACID 6.9 mg/dL (4.4-7.6)
[2023-05-09 12:37] LABS: CREATININE,URINE 176.4 mg/dL; MICROALBUM/CREATININE RATIO,UR 52.2 ug/mg (<30.0); MICROALBUMIN,URINE 9.2 mg/dL; PROTEIN/CREATININE RATIO,URINE 0.1 (<=0.2)
== END 2023-05-09 09:47 | disposition home or self-care (01) ==
LOC: LAB.N 09:46
PROVIDERS: ATTEND Internal Medicine
DX: I12.9 Hypertensive chronic kidney disease with stage 1 through stage 4 chronic kidney disease, or unspecified chronic kidney disease (principal); N18.9 Chronic kidney disease, unspecified; E79.0 Hyperuricemia without signs of inflammatory arthritis and tophaceous disease
CPT/HCPCS: 36415; 80048; 82043; 82570; 84156; 84550

== ENCOUNTER 2024-02-14 10:10 | Outpatient (CLI) | payer MEDICARE, BC ==
[2024-02-14 12:08] LABS: BASOPHILS # (AUTO) 0.1 10^3/uL (0.0-0.1); BASOPHILS % (AUTO) 1.1 %; EOSINOPHILS # (AUTO) 0.3 10^3/uL (0.0-0.7); EOSINOPHILS % (AUTO) 6.6 %; HCT - HEMATOCRIT 39.6 % (42.0-52.0); HGB - HEMOGLOBIN 12.8 g/dL (14.0-18.0); LYMPHOCYTES # (AUTO) 1.2 10^3/uL (1.5-3.5); LYMPHOCYTES % (AUTO) 25.7 %; MEAN CORPUSCULAR HEMOGLOBIN 31.1 pg (27.0-31.0); MEAN CORPUSCULAR HGB CONC 32.3 g/dL (32.0-36.0); MEAN CORPUSCULAR VOLUME 96.4 fL (80.0-94.0); MONOCYTES # (AUTO) 0.5 10^3/uL (0.0-1.0); MONOCYTES % (AUTO) 10.5 %; NEUTROPHILS # (AUTO) 2.6 10^3/uL (1.5-6.6); NEUTROPHILS % (AUTO) 55.9 %; PLT - PLATELET COUNT 270 10^3/uL (130-450); RED BLOOD COUNT 4.11 10^6/uL (4.70-6.10); RED CELL DISTRIBUTION WIDTH 13.1 % (12.0-15.0); WHITE BLOOD COUNT 4.7 x10^3/uL (4.8-10.8)
[2024-02-14 12:31] LABS: ALBUMIN 4.2 g/dL (3.2-5.5); ALBUMIN/GLOBULIN RATIO 1.4 (1.0-2.2); ALKALINE PHOSPHATASE 86 IU/L (42-121); ALT ALANINE AMINOTRANSFERASE 20 IU/L (10-60); AST ASPARTATE AMINOTRANSFERASE 21 IU/L (10-42); BILIRUBIN,TOTAL 0.4 mg/dL (0.2-1.0); BUN - BLOOD UREA NITROGEN 29 mg/dL (6-20); CALCIUM 10.1 mg/dL (8.5-10.3); CARBON DIOXIDE - CO2 25 mmol/L (21-32); CHLORIDE 110 mmol/L (101-111); CHOLESTEROL 208 mg/dL; CREATININE 1.7 mg/dL (0.6-1.3); GFR - MDRD 40 (>89); GLUCOSE 100 mg/dL (74-104); HDL CHOLESTEROL 42 mg/dL; LDL CHOLESTEROL,CALCULATED 128 mg/dL; POTASSIUM 4.2 mmol/L (3.5-4.5); SODIUM 140 mmol/L (135-145); TOTAL PROTEIN 7.2 g/dL (6.4-8.9); TRIGLYCERIDES 189 mg/dL; VLDL CHOLESTEROL 38 mg/dL
[2024-02-14 12:43] LABS: CREATININE,URINE 86.7 mg/dL; MICROALBUM/CREATININE RATIO,UR 57.7 ug/mg (<30.0)
[2024-02-14 13:17] LABS: ESTIMATED AVERAGE GLUCOSE 114 mg/dL (70-100); HEMOGLOBIN A1c% 5.6 % (4.27-6.07)
== END 2024-02-14 10:11 | disposition home or self-care (01) ==
LOC: LAB.N 10:10
PROVIDERS: ATTEND Internal Medicine
DX: E78.5 Hyperlipidemia, unspecified (principal); R73.01 Impaired fasting glucose; N40.1 Benign prostatic hyperplasia with lower urinary tract symptoms; E79.0 Hyperuricemia without signs of inflammatory arthritis and tophaceous disease; I12.9 Hypertensive chronic kidney disease with stage 1 through stage 4 chronic kidney disease, or unspecified chronic kidney disease
CPT/HCPCS: 36415; 80053; 80061; 82043; 82570; 83036; 83721; 84153; 84550; 85025